=== PATIENT | male | born 1995 | race Caucasian/White ===

== ENCOUNTER 2019-04-01 18:37 | Emergency (ER) | payer OTHER ==
[2019-04-01 18:44] VITALS: TEMP 98.3; BMI 35.2
[2019-04-01] MEDS ORDERED: IBUPROFEN 400 MG TABLET (FP) PO ONE ×2 (19:24→19:37)
--- NOTE | 2019-04-01 20:38 | PDOC ---
History of Present Illness - General Chief Complaint: Pain, Acute Stated Complaint: ARM PROBLEM Time Seen by Provider: 04/01/19 19:17 History Source: Patient Exam Limitations: No Limitations Past History - Travel Traveled outside of the country in the last 30 days: No Close contact w/someone who was outside of country & ill: No - Past Medical History Allergies/Adverse Reactions: Allergies Allergy/AdvReac Type Severity Reaction Status Date / Time No Known Allergies Allergy Verified 04/01/19 18:45 Home Medications: Ambulatory Orders NK [No Known Home Medication] 04/01/19 COPD: No - Suicide/Smoking/Psychosocial Hx Smoking History: Never smoked Hx Alcohol Use: Yes Drug/Substance Use Hx: No Review of Systems - Review of Systems Able to Perform ROS?: Yes Comments:: 04/01/19 20:32 CONSTITUTIONAL: Absent: fever, chills, diaphoresis, generalized weakness, malaise, loss of appetite HEENT: Absent: rhinorrhea, nasal congestion, throat pain, throat swelling, difficulty swallowing, mouth swelling, ear pain, eye pain, visual Changes MUSCULOSKELETAL: Present: L arm pain Absent: myalgia, joint swelling SKIN: Absent: rash, itching, pallor NEUROLOGIC: Absent: headache, focal weakness or paresthesias, dizziness, unsteady gait, seizure, mental status changes, bladder or bowel incontinence PSYCHIATRIC: Absent: anxiety, depression, suicidal or homicidal ideation, hallucinations. Is the patient limited Icelandic proficient: No *Physical Exam - Vital Signs Last Vital Signs Temp Pulse Resp BP Pulse Ox 98.3 F 81 16 130/69 99 04/01/19 18:42 04/01/19 18:42 04/01/19 18:42 04/01/19 18:42 04/01/19 18:42 - Physical Exam Comments: 04/01/19 20:33 GENERAL: The patient is awake, alert, and fully oriented, in no acute distress. HEAD: Normal with no signs of trauma. EYES: Pupils equal, round and reactive to light, extraocular movements intact, sclera anicteric, conjunctiva clear. EXTREMITIES: TTP of the L medial epicondyle. Pt able to flex L elbow to 100 degrees and then stops d/t pain. Minimally swollen L elbow. Normal range of motion, no edema. NEUROLOGICAL: Normal speech, normal gait. PSYCH: Normal mood, normal affect. SKIN: Warm, Dry, normal turgor, no rashes or lesions noted. Procedures - Splinting Splint Location: Left: Elbow Pre-Proc Neuro Vasc Exam: normal Hand-Made Type: orthoglass Splint Type: Yes: Long Arm Post-Proc Neuro Vasc Exam: unchanged from pre-exam Narciso Bandage: 4" Sling: Yes Complications: No ED Treatment Course - RADIOLOGY Radiology Studies Ordered: Category Date Time Status ELBOW-LEFT [RAD] Stat Radiology 04/01/19 19:24 Taken - Medications Given in the ED: ED Medications Discontinued Medications Generic Name Dose Route Start Last Admin Trade Name Florencia PRN Reason Stop Dose Admin Ibuprofen 800 mg 04/01/19 19:24 04/01/19 19:47 Motrin - PO 04/01/19 19:25 800 mg ONCE ONE Administration Medical Decision Making - Medical Decision Making 04/01/19 20:34 the patient is a 23-year-old male with no past medical history who presents to the emergency department today with left arm pain. The patient states he was playing soccer when he hyperextended his elbow and landed backwards. He states this happened this evening. He admits that the arm is swollen. He is right-hand dominant. Denies numbness and tingling and weakness the affected extremity. A/P: Left arm pain On exam tenderness to palpation of theleft medial epicondyles. Patient unable to fully flex arm due to pain. Radial pulses are 2+ bilaterally, PMS grossly intact. X-ray shows a possible sail sign however unsure at this time. We will place patient in a sling and splint as a precaution. Motrin given. Ortho referral given. Discharge home I discussed the physical exam findings, ancillary test results and final diagnoses with the patient. I answered all of the patient's questions. The patient was satisfied with the care received and felt comfortable with the discharge plan and treatment plan. The Patient agrees to follow up with the primary care physician/specialist within 24-72 hours. Return precautions were given. *DC/Admit/Observation/Transfer Diagnosis at time of Disposition: Left arm pain - Discharge Dispostion Disposition: HOME Condition at time of disposition: Stable Decision to Admit order: No - Referrals Referrals: Bean Pitts MD [Staff Physician] - Chris Dejesus MD [Staff Physician] - Rodriges,Bryan A, DO [Staff Physician] - - Patient Instructions Printed Discharge Instructions: DI for Elbow Fracture Additional Instructions: You were evaluated for your elbow pain today Please wear the splint and sling until you are evaluated by orthopedics; follow up with them in 3-5 days Referrals have been provided Take Motrin 800mg every 8 hours as needed for pain. Follow the dosing instructions on the bottle Do not get the splint wet. Keep it dry when showering Return to the ER for worsening pain, fever, or if you have any changes in your symptoms. Usted fue evaluado por atkins dolor de codo hoy Use la frula y la honda hasta que sea evaluado por ortopedia; seguimiento con ellos en 3-5 [place] Se nelson proporcionado referencias [facility] Motrin 800mg cada 8 horas segn sea necesario para el dolor. Siga las instrucciones de dosificacin en la botella. No moje la frula. Mantenlo seco cuando te duches Regrese a la francisca de emergencias para empeorar el dolor, la fiebre o si tiene algn cambio en naty sntomas. Print Language: PORTUGUESE - Post Discharge Activity
[2019-04-01 20:42] VITALS: BP 126/70; PULSE 80
== END 2019-04-01 20:52 | disposition home or self-care (01) ==
LOC: JER 18:37
PROC: 2W39X1Z Immobilization of Left Upper Extremity using Splint (ICD-10-PCS; principal; 2019-04-01)
DX: M25.522 Pain in left elbow (principal)
CPT/HCPCS: 29125; 73070-TC-LT-FY; 99282-25

== ENCOUNTER 2019-09-22 18:01 | Emergency (ER) | payer OTHER ==
[2019-09-22 18:14] VITALS: BP 157/85; PULSE 92; TEMP 98.2; BMI 29.0
[2019-09-22] MEDS ORDERED: LIDOCAINE 1%/EPI 1:100000 (20 ML MULTI DOSE VIAL) ONE (19:10)
[2019-09-22] MEDS ORDERED: DIPHTH,PERTUSS(ACELL),TET 0.5 ML DISP.SYRIN IM ONE ×2 (19:45→19:46)
[2019-09-22] MEDS ORDERED: LIDOCAINE 1%/EPI 1:100000 (20 ML MULTI DOSE VIAL) IJ ONE (19:45)
--- NOTE | 2019-09-22 19:50 | PDOC ---
History of Present Illness - General Chief Complaint: Laceration Stated Complaint: HAND INJURY Time Seen by Provider: 09/22/19 18:25 History Source: Patient Exam Limitations: No Limitations - History of Present Illness Initial Comments: 09/22/19 19:50 Patient is a 24-year-old male who presents to the ED with complaint of a left hand laceration that he sustained just prior to arrival. He was playing with his child and when he moved his hand backward he accidentally put it through a glass window pane of a door. He is unsure of his last tetanus booster. He denies any past medical history or allergies to medications. He has not taken anything for his pain. Past History - Past Medical History Allergies/Adverse Reactions: Allergies Allergy/AdvReac Type Severity Reaction Status Date / Time No Known Allergies Allergy Verified 09/22/19 18:09 Home Medications: Ambulatory Orders NK [No Known Home Medication] 09/22/19 COPD: No - Psycho Social/Smoking Cessation Hx Smoking History: Never smoked Hx Alcohol Use: No Drug/Substance Use Hx: No Review of Systems - Review of Systems Comments:: 09/22/19 19:51 - Review of Systems Able to Perform ROS?: Yes Constitutional: No: Fever, Chills, Loss of Appetite, Night Sweats, Weakness HEENTM: No: Eye Pain, Vision changes, Ear Pain, Throat Pain, Throat Swelling, Mouth Pain, Difficulty Swallowing Respiratory: No: Cough, Shortness of Breath, Wheezing, Sputum Production Cardiac (ROS): No: Chest Pain, Chest Tightness, Palpitations, Irregular Heart Beat, Edema ABD/GI: No: Nausea, Vomiting, Abdominal Pain, Diarrhea Musculoskeletal: No: Muscle Pain, Back Pain, Joint Pain, Muscle Weakness, Neck Pain Integumentary: No: Lesions, Rash; Left hand laceration Neurological: No: Headache, Numbness, Tingling, Weakness, Speech Difficulties *Physical Exam - Vital Signs Last Vital Signs Temp Pulse Resp BP Pulse Ox 98.2 F 92 H 18 157/85 98 09/22/19 18:09 09/22/19 18:09 09/22/19 18:09 09/22/19 18:09 09/22/19 18:09 - Physical Exam 09/22/19 19:52 - Physical Exam General Appearance: Nourished, Appropriately Dressed, No Distress Neck: Supple, No Lymphadenopathy (R), No Lymphadenopathy (L), No Rigidity, No Decreased range of motion Respiratory/Chest: Lungs Clear, Normal Breath Sounds. No Respiratory Distress, No Accessory Muscle Use Cardiovascular: Regular Rhythm, Regular Rate, S1, S2 Musculoskeletal: Normal Inspection. No Decreased Range of Motion Extremity: Normal Capillary Refill, Normal Inspection Integumentary: Normal Color, Dry. No Rash; 4 cm irregular flap laceration to the medial aspect of the left hand just proximal to the base of the small finger. Moderate active bleeding. No evidence of foreign body and wound probed and examined for foreign body. Full range of motion of the left small finger, patient can extend and flex fully at the DIP, PIP and MCP. Moderate tenderness to palpation. Neurologic: analysis internship II-XII NML intact, Fully Oriented, Alert, Normal Mood/Affect, Normal Response Procedures - Laceration/Wound Repair Left Medial Hand Wound Length: 2.6 to 5.0 cm Wound Explored: clean Wound's Depth, Shape: superficial, irregular, flap Anesthesia: 1% Lidocaine w/ Epi Amount of Anesthetic (ccs): 5 Wound Repaired With: Sutures Suture Size/Type: 5:0, proline Number of Sutures: 10 Layer Closure: No Sterile Dressing Applied: Yes Splint Applied: No Medical Decision Making - Medical Decision Making 09/22/19 19:47 Assessment: Patient is a 24-year-old male with a left medial hand laceration at the base of the small finger. He does not know when his last tetanus vaccine was. Plan: -Laceration repair -Boostrix IM -Patient should keep the wound clean and dry for 2 days. After 2 days he can remove the dressing and wash the wound daily with warm water and soap. He should allowed to dry for 30 minutes before covering. He should keep the wound uncovered while at home but should keep it covered if away from home. He will return in 7 days for repeat evaluation and likely suture removal. I have made the patient aware that secondary to the the nature of the laceration being a very thin flap, there is risk of skin necrosis and sloughing. He understands that although we have repaired the laceration the skin may ultimately become necrotic and slough off. Discharge - Discharge Information Problems reviewed: Yes Clinical Impression/Diagnosis: Laceration of left hand Qualifiers: Encounter type: initial encounter Foreign body presence: without foreign body Qualified Code(s): S61.412A - Laceration without foreign body of left hand, initial encounter Condition: Stable Disposition: HOME - Follow up/Referral - Patient Discharge Instructions Patient Printed Discharge Instructions: DI for Laceration Repair Additional Instructions: Keep the wound clean and dry. Do not remove the bandage until 09/24/2019. After 2 days you can remove the bandage and wash the wound daily with warm water and soap. Allowed to dry for at least 30 minutes before covering. If you are at home leave the wound uncovered. If you are away from home you should put a bandage on the wound. Return to the ER in 7 days for repeat evaluation and likely to have the sutures removed. Print Language: MOSOTHO - Post Discharge Activity Work/Back to School Note: Back to Work
== END 2019-09-22 20:17 | disposition home or self-care (01) ==
LOC: JERFT 18:01
PROC: 3E0234Z Introduction of Serum, Toxoid and Vaccine into Muscle, Percutaneous Approach (ICD-10-PCS; principal; 2019-09-22)
PROC: 3E023BZ Introduction of Anesthetic Agent into Muscle, Percutaneous Approach (ICD-10-PCS; 2019-09-22)
PROC: 0JQK0ZZ Repair Left Hand Subcutaneous Tissue and Fascia, Open Approach (ICD-10-PCS; 2019-09-22)
DX: S61.412A Laceration without foreign body of left hand, initial encounter (principal); W25.XXXA Contact with sharp glass, initial encounter; Y93.89 Activity, other specified; Y92.038 Other place in apartment as the place of occurrence of the external cause; Y99.8 Other external cause status
CPT/HCPCS: 90715; 99282-25

== ENCOUNTER 2019-09-30 19:16 | Emergency (ER) | payer OTHER ==
[2019-09-30 19:59] VITALS: BP 130/82; PULSE 88; TEMP 98.1; BMI 32.3
--- NOTE | 2019-09-30 20:08 | PDOC ---
Suture Removal/Wound Check HPI - History of Present Illness Chief Complaint: Suture/Staple Removal(Here) Stated Complaint: STICHES REMOVEL Time Seen by Provider: 09/30/19 20:04 History Source: Yes: Patient, Old Records Exam Limitations: Yes: No Limitations Date of Last ED visit: 09/22/19 - Previous ED Treatment Type of procedure performed on last visit: Yes: Laceration Repair Tetanus Immunization: Yes: Given at last ED visit Past History - Past Medical History Allergies/Adverse Reactions: Allergies Allergy/AdvReac Type Severity Reaction Status Date / Time No Known Allergies Allergy Verified 09/30/19 19:59 Home Medications: Ambulatory Orders NK [No Known Home Medication] 09/22/19 COPD: No - Psycho Social/Smoking Cessation Hx Smoking History: Never smoked Have you smoked in the past 12 months: No Information on smoking cessation initiated: No Hx Alcohol Use: No Drug/Substance Use Hx: No Suture Removal/Wound Check PE - Physical Exam Laceration/Wound Check Symptoms: reports: None Current Severity Level: None Maximum Severity Level: None Pain Localization: None Location of Laceration/Wound: left: Hand (Dorsum) Pain Radiation: None *Review of Systems - Review of Systems Able to Perform ROS?: Yes All Other Systems: Reviewed and Negative *Physical Exam - Vital Signs Last Vital Signs Temp Pulse Resp BP Pulse Ox 98.1 F 88 16 130/82 100 09/30/19 19:55 09/30/19 19:55 09/30/19 19:55 09/30/19 19:55 09/30/19 19:55 - Physical Exam General Appearance: Yes: Appropriately Dressed. No: Apparent Distress Extremity: positive: Other (Sutures present to the dorsum of the left hand. No evidence of infection. Wound L she is well approximated with appropriate healing.) Integumentary: positive: Normal Color, Dry, Warm Medical Decision Making - Medical Decision Making 09/30/19 20:54 A/P: 24-year-old male here for suture removal for laceration sustained on 09/22 No erythema, discharge or lymphangitis present Full range of motion of hand without difficulty. Neurovascularly intact Wound edges well approximated and good healing is noted 10 simple interrupted sutures removed without incident Discharge home Portions of this note have been documented using voice recognition software. As a result, errors may occur in the educational technology specialist process. Effort has been made to correct all grammatical and educational technology specialist error, but some may have been missed which may produce sporadic inaccurate educational technology specialist or nonsensical phrases. Discharge - Discharge Information Problems reviewed: Yes Clinical Impression/Diagnosis: Visit for suture removal Condition: Stable Disposition: HOME - Admission No - Follow up/Referral - Patient Discharge Instructions Patient Printed Discharge Instructions: DI for Suture Removal Additional Instructions: Rest, allow completion of healing May continue using bacitracin ointment until scabs are completely resolved Keep wound covered and out of the sun for at least one year as scar tissue will pickers material handlers and absorbable more sunlight causing a darker discoloration May use vitamin E, aloe, or other oils recommended for skin and scar healing Descansa, permite completar la curacin Puede continuar usando ungento de bacitracina hasta que las costras se resuelvan por completo Mantenga la herida cubierta y fuera eva maryuri al menos un ao, ya que el tejido cicatricial se acumular y absorber ms enrrique solar causando kev decoloracin ms oscura. Puede usar vitamina E, aloe u otros aceites recomendados para la cicatrizacin de la piel y cicatrices. Print Language: MAURITANIAN - Post Discharge Activity
== END 2019-09-30 20:56 | disposition home or self-care (01) ==
LOC: JERFT 19:16
DX: Z48.817 Encounter for surgical aftercare following surgery on the skin and subcutaneous tissue (principal); Z48.02 Encounter for removal of sutures
CPT/HCPCS: 99281-25

== ENCOUNTER 2024-02-17 19:51 | Emergency (ER) | payer OTHER ==
[2024-02-17 19:58] VITALS: BMI 33.9
[2024-02-17] MEDS ORDERED: KETOROLAC TROMETHAMINE 15 MG/ML VIAL ONE (22:06)
[2024-02-17] MEDS: KETOROLAC TROMETHAMINE 15 MG/ML VIAL IM ONE (22:13)
[2024-02-17] MEDS: KETOROLAC TROMETHAMINE 15 MG/ML VIAL IVPUSH ONE (22:14)
[2024-02-18 07:46] VITALS: BP 114/71; PULSE 80; RESP 16; TEMP 98.3
== END 2024-02-18 08:35 | disposition home or self-care (01) ==
LOC: JERFT 19:51 → JER 19:51
PROC: 3E0133Z Introduction of Anti-inflammatory into Subcutaneous Tissue, Percutaneous Approach (ICD-10-PCS; principal; 2024-02-17)
DX: S89.92XA Unspecified injury of left lower leg, initial encounter (principal); X50.1XXA Overexertion from prolonged static or awkward postures, initial encounter
CPT/HCPCS: 73564-TC-LT-FY; 73700-TC-RT; 99284-25